=== PATIENT | female | born 1970 | race African-American/Black ===

== ENCOUNTER 2016-03-03 06:00 | Observation (INO) | payer BC ==
[2016-02-27 12:20] VITALS: Ht 167.6 cm; Wt 85.6 kg
[~2016-03-03] VITALS: Ht 167.6 cm; Wt 85.6 kg
[2016-03-03] VITALS (21 sets, daily range): BP systolic 91–138; RESP 16–81; TEMP 98.2–100.4
[2016-03-03] MEDS ORDERED: CEFAZOLIN 2,000 MG in SODIUM CHLORIDE 0.9% 100 ML IV ONE (06:25)
[2016-03-03] MEDS ORDERED: SCOPOLAMINE PATCH TRANSDERM ONE (06:50)
[2016-03-03] MEDS ORDERED: MIDAZOLAM 2 MG/2 ML INJ IV ONE (06:50)
[2016-03-03] MEDS ORDERED: ONDANSETRON 4 MG VIAL IV ONE (06:50)
[2016-03-03] MEDS ORDERED: LIDOCAINE 1% BUFFERED 1 ML SYR INTRADERM PRN (06:50)
[2016-03-03] MEDS ORDERED: GLYCOPYRROLATE 0.2 MG/ML VIAL IV ONE ×2 (06:50→09:56)
[2016-03-03] MEDS ORDERED: LACT RINGERS 1,000 ML IV SCH ×2 (06:50→11:00)
[2016-03-03] MEDS ORDERED: MORPHINE 4 MG/ML SYR IV PRN (07:25)
[2016-03-03] MEDS ORDERED: DILAUDID 1 MG/ML AMP IV PRN ×2 (07:25→11:00)
[2016-03-03] MEDS ORDERED: MORPHINE 2 MG/ML SYR IV PRN (07:25)
[2016-03-03] MEDS ORDERED: ONDANSETRON 4 MG VIAL IV PRN ×3 (07:25→13:05)
[2016-03-03] MEDS ORDERED: MEPERIDINE 25 MG/ML IV PRN (07:25)
[2016-03-03] MEDS ORDERED: OXYCODONE 5 MG TAB PO PRN (07:25)
[2016-03-03] MEDS ORDERED: DILAUDID 1 MG/ML AMP IV ONE (09:56)
[2016-03-03] MEDS ORDERED: LIDOCAINE 2% SYR 5 ML IV ONE (09:56)
[2016-03-03] MEDS ORDERED: ACETAMINOPHEN 1,000 MG/100 ML IV ONE (09:56)
[2016-03-03] MEDS ORDERED: DEXAMETHASONE 4 MG/ML VIAL IV ONE (09:56)
[2016-03-03] MEDS ORDERED: PROPOFOL 20 ML PER ML IV ONE (09:56)
[2016-03-03] MEDS ORDERED: ROCURONIUM 50 MG VIAL IV ONE (09:56)
[2016-03-03] MEDS ORDERED: KETOROLAC 30 MG/ML VIAL IV ONE (09:56)
[2016-03-03] MEDS ORDERED: NEOSTIGMINE 10 MG/10 ML VIAL IV ONE (09:56)
[2016-03-03] MEDS ORDERED: ONDANSETRON 4 MG VIAL IV PUSH ONE (09:56)
[2016-03-03] MEDS: KETOROLAC 30 MG/ML VIAL IV SCH ×3 (11:00→23:21)
[2016-03-03] MEDS ORDERED: PROMETHAZINE 25 MG/ML VIAL IV PRN ×2 (11:00→13:05)
[2016-03-03] MEDS ORDERED: ONDANSETRON ODT 4 MG TAB PO PRN (11:00)
[2016-03-03] MEDS ORDERED: DILAUDID 1 MG/ML AMP ONE (13:03)
[2016-03-03] MEDS: DILAUDID 1 MG/ML AMP IV PRN ×2 (13:07→23:01)
[2016-03-03] MEDS ORDERED: BUPIVACA/EPI 0.5% PF 10 ML NERVEBLOCK ONE (13:59)
[2016-03-03] MEDS ORDERED: DEXTROSE 50% SYRINGE 50 ML IV ONE (14:00)
[2016-03-03] MEDS ORDERED: KETOROLAC 30 MG/ML VIAL ONE (18:44)
[2016-03-03] MEDS ORDERED: MISSING DOSE XX ONE (23:10)
[2016-03-04 03:48] VITALS: BP_SYST 159; RESP 18; TEMP 97.8
[2016-03-04] MEDS: DILAUDID 1 MG/ML AMP IV PRN (06:28)
[2016-03-04 08:51] VITALS: BP_SYST 147; RESP 18; TEMP 97.9
[2016-03-04 10:52] VITALS: BP_SYST 147; RESP 18; TEMP 97.9
[2016-03-04] MEDS ORDERED: REMOVE TRANSDERMAL PATCH TOPICAL ONE (11:25)
[2016-03-06] MEDS ORDERED: REMOVE SCOPALAMINE PATCH XX ONE (06:50)
== END 2016-03-04 08:05 | disposition home or self-care (01) ==
LOC: SURG 06:00 → ENPENDDIS 10:57 → SDS 10:57 → SURG 11:06 → 3S 11:50
PROVIDERS: ADMIT Obstetrics & Gynecology Reproductive Endocrinology; ATTEND Obstetrics & Gynecology Reproductive Endocrinology
DX: D25.1 Intramural leiomyoma of uterus (principal); N84.0 Polyp of corpus uteri; D25.0 Submucous leiomyoma of uterus; D25.2 Subserosal leiomyoma of uterus; N73.6 Female pelvic peritoneal adhesions (postinfective); N83.8 Other noninflammatory disorders of ovary, fallopian tube and broad ligament; N93.9 Abnormal uterine and vaginal bleeding, unspecified; I10 Essential (primary) hypertension; F17.200 Nicotine dependence, unspecified, uncomplicated
CPT/HCPCS: 36415; 80048; 85014; 85018; 85025; 88307; 88311; 93005; 94799